=== PATIENT | male | born 1970 | race Two or more races ===

== ENCOUNTER 2020-06-05 10:53 | Emergency (ER) | payer MEDICAID ==
[~2020-06-05] VITALS: Ht 170.2 cm; Wt 68.2 kg
[2020-06-05 11:14] VITALS: BP 158/109
[2020-06-05] MEDS ORDERED: EMTR1TAB15 PO (11:19)
[2020-06-05] MEDS ORDERED: TRAZ-252 PO (11:19)
[2020-06-05] MEDS ORDERED: SERT50TA12 PO (11:19)
== END 2020-06-05 12:50 | disposition home or self-care (01) ==
LOC: EMS 10:54
DX: F41.9 Anxiety disorder, unspecified (principal); F32.9 Major depressive disorder, single episode, unspecified; F12.90 Cannabis use, unspecified, uncomplicated; F19.90 Other psychoactive substance use, unspecified, uncomplicated
CPT/HCPCS: Z7502